=== PATIENT | female | born 1995 | race Hispanic/Latino ===

== ENCOUNTER → 2021-01-27 12:43 | Outpatient (CLI) | payer OTHER, SELFPAY ==
--- NOTE | 2021-01-27 12:47 | DI.US.S_ITS ---
PROCEDURE: US OB LIMITED INDICATIONS: DATES OUTSIDE/PRIOR DATING DATA: Last menstrual period (LMP): Unknown. First dating scan (date and location): ; January 27, 2021 . Estimated date of delivery (JEFFERY) from first dating scan: July 23, 2021 . TECHNIQUE: Real-time scanning was performed of the fetus, with image documentation and biometric measurements. COMPARISON: None. FINDINGS: General: A single living intrauterine gestation is present. Presentation: Transverse right. Placenta: Placental position is anterior , without previa. heart rate: 157 beats per minute. Maternal cervical canal: Not well visualized. biometrics: Biparietal diameter: 2.7 cm Head circumference: 10.3 cm Abdominal circumference: 8.6 cm Femur length: 1.5 cm Estimated gestational age from initial scan: not applicable. Composite gestational age from present scan: 14 weeks, 5 days Measurement variability for biometric dating: +/- 7 days from 14 weeks to 15 weeks 6 days gestation, +/- 10 days from 16 weeks to 21 weeks 6 days gestation, +/- 2 weeks from 22 weeks to 27 weeks 6 days gestation, +/- 3 weeks for 28 weeks gestation or later. weight reference: 4500 g or EFW >90/95% is considered macrosomia or large for gestational age. EFW <10% is small for gestational age. EFW 5% or less is considered intra-uterine growth restriction. Other: Not applicable. IMPRESSION: Single live intrauterine gestation as detailed above. Dictated by: Piter Herrera M.D. on 01/27/2021 at 15:06 Approved by: Piter Herrera M.D. on 01/27/2021 at 15:09
[2021-01-27 14:32] LABS: Add Manual Diff / Slide Review NO; Basophils Absolute Auto 0 /uL (0-100); Basophils Percent Auto 0.3 % (0-2); Eosinophils Absolute Auto 100 /uL (0-450); Eosinophils Percent Auto 1.5 % (2-4); Hematocrit 34.6 % (36-46); Hemoglobin 11.6 g/dL (12.0-16.0); Lymphocytes Absolute Auto 1200 /uL (1100-4500); Lymphocytes Percent Auto 21.8 % (25-40); Mean Corpuscular HGB Conc 33.6 % (30-36); Mean Corpuscular Hemoglobin 28.7 PG (26-34); Mean Corpuscular Volume 85.3 fL (80-100); Monocytes Absolute Auto 300 /uL (0-900); Monocytes Percent Auto 5.8 % (3-14); Neutrophils Absolute Auto 3900 /uL (1500-7000); Neutrophils Percent Auto 70.6 % (50-75); Platelet Count 245 X10^3/uL (150-400); Red Blood Cell Count 4.06 X10^6/uL (4.0-5.2); Red Cell Distribution Width 14.2 % (11.6-14.8); White Blood Cell Count 5.5 X10^3/uL (4.5-11.0)
[2021-01-27 14:33] LABS: Appearance Urine UA CLOUDY; Bilirubin Urine UA NEGATIVE (NEGATIVE); Color Urine UA YELLOW; Glucose Urine UA NEGATIVE (Negative); Ketones Urine UA NEGATIVE (NEGATIVE); Leukocyte Esterase Urine UA 2+ (NEGATIVE); Nitrite Urine UA NEGATIVE (Negative); Occult Blood Urine UA NEGATIVE (Negative); Protein Urine UA NEGATIVE (Negative); Urobilinogen Urine UA 0.2 E.U./dL (0.2)
[2021-01-27 15:08] LABS: Bacteria Urine Many (>30); RBC Urine None Seen (0-5/HPF); Squamous Epithelial Cell Urine 10-30 /HPF (0-5/HPF); WBC Urine 5-10/HPF (0-5/HPF)
[2021-01-28 06:08] LABS: RPR Screen Non Reactive (Non Reactive)
[2021-01-28 12:24] LABS: Varicella IgG Antibody 518 index (Immune >165)
[2021-01-28 17:11] LABS: Hepatitis B Surface Antigen NEGATIVE s/c (NEGATIVE); Rubella Antibody IgG 42.8 IU/mL (>15)
[2021-01-28 17:23] LABS: HIV 1 & 2 Ab/Ag 4th Gen Combo NEGATIVE (NEGATIVE); Hep C Virus Ab w/Reflex Quant NEGATIVE s/c (NEGATIVE)
== END ==
PROVIDERS: Referring Provider Obstetrics & Gynecology; Visit Provider Obstetrics & Gynecology
DX: Z36.87 Encounter for antenatal screening for uncertain dates (principal); Z3A.14 14 weeks gestation of pregnancy
CPT/HCPCS: 36415; 76815; 80055; 81003; 81015; 86787; 86803; 86850; 86900; 86901; 87086; 87389

== ENCOUNTER → 2021-02-16 12:11 | Outpatient (CLI) | payer OTHER, SELFPAY ==
[2021-02-18 20:13] LABS: Calc Gestational Age EDD (.); Estriol, Free 0.97 ng/mL (.); Inhibin A, Dimeric 163.56 pg/mL (.); Inhibin A, MoM 0.95 (.); Maternal Ethnicity Other (.); Maternal Weight 130 lbs (.); Number of Fetuses No (.); OSBR Risk 1 IN 10000 (.); Results Report (.); Test Results *Screen Negative* (.); hCG, Serum 26965 mIU/mL (.)
== END ==
PROVIDERS: Referring Provider Obstetrics & Gynecology; Visit Provider Obstetrics & Gynecology
DX: Z34.82 Encounter for supervision of other normal pregnancy, second trimester (principal); Z3A.17 17 weeks gestation of pregnancy
CPT/HCPCS: 36415; 82105; 82677; 84702; 86336

== ENCOUNTER → 2021-03-16 11:54 | Outpatient (CLI) | payer OTHER, SELFPAY ==
[2021-03-16 16:05] LABS: Urine N gonorrhoeae NOT DETECTED
[2021-03-16 16:21] LABS: Urine Chlamydia NOT DETECTED
== END ==
PROVIDERS: Visit Provider Obstetrics & Gynecology
DX: Z34.82 Encounter for supervision of other normal pregnancy, second trimester (principal); Z3A.21 21 weeks gestation of pregnancy
CPT/HCPCS: 87491; 87591

== ENCOUNTER → 2021-04-22 10:27 | Outpatient (CLI) | payer OTHER, SELFPAY ==
--- NOTE | 2021-04-22 10:29 | DI.US.S_ITS ---
PROCEDURE: US OB >= 14 WEEKS FETUS INDICATIONS: ANATOMY OUTSIDE/PRIOR DATING DATA: Last menstrual period (LMP): Unknown. LMP-based estimated date of delivery (JEFFERY): Not applicable. First dating scan (date and location): 01/27/2021. Estimated date of delivery (JEFFERY) from first dating scan: 07/23/2021. The calculations are made using the ultrasound JEFFERY of 07/23/2021. TECHNIQUE: Real-time scanning was performed of the fetus, with image documentation and biometric measurements. COMPARISON: None. FINDINGS: General: A single living intrauterine gestation is present. Presentation: Vertex. Placenta: Placental position is anterior , without previa. Amniotic fluid index: 14.4 cm, normal range is 5-24 cm. heart rate: 132 beats per minute. Maternal cervical canal: 4.0 cm long. Normal lower limit is 2.5 cm. biometrics: Biparietal diameter: 7.3 cm. 29 weeks 1 day. Head circumference: 26.3 cm. 28 weeks 5 days. Abdominal circumference: 23.5 cm. 27 weeks 6 days. Femur length: 5.2 cm. 27 weeks 5 days. Composite gestational age from initial ultrasound: 26 weeks 6 days Composite gestational age from present scan: 28 weeks 3 days Estimated weight and percentile: 1157 g. 83rd percentile. Anatomic survey: Neuro: Not seen Nuchal skin fold: Not seen Face: Nose and lips, facial profile are normal. Spine: Not seen Heart: 4-chambered heart is present, with normal ventricular outflow tracts. Diaphragm: Diaphragm is intact. Stomach: Left-sided stomach is present. Kidneys: No hydronephrosis. Normal is less than 5 mm in 2nd trimester, less than 7 mm in 3rd trimester. Cord: 3-vessel cord has orthotopic insertion. Bladder: Normal in size. Extremities: All 4 extremities identified. IMPRESSION: 1. Single live intrauterine with an estimated gestational age of 26 weeks 6 days by initial ultrasound. 2. Estimated weight 1157 g. 83rd percentile. 3. Anatomy is not completely visualized, however visualized anatomy is normal. We strive to produce accurate, complete, and clear reports of imaging services. To assist us in improving patient care, this report was composed using standard report templates and voice recognition software. Therefore, it may contain abnormal punctuation, insertions and/or omissions. Occasional wrong-word or sound-alike substitutions may occur. Though we review the report and make efforts to correct it, we do recommend that the report be read carefully in proper context to recognize any text inaccuracies. Dictated by: Vicente Whitten M.D. on 04/22/2021 at 11:24 Approved by: Vicente Whitten M.D. on 04/22/2021 at 11:30
== END ==
PROVIDERS: Referring Provider Obstetrics & Gynecology; Visit Provider Obstetrics & Gynecology
DX: Z34.92 Encounter for supervision of normal pregnancy, unspecified, second trimester (principal); Z3A.26 26 weeks gestation of pregnancy
CPT/HCPCS: 76811

== ENCOUNTER → 2021-05-25 09:52 | Outpatient (CLI) | payer OTHER, SELFPAY ==
[2021-05-25 11:41] LABS: Hemoglobin 10.4 g/dL (12.0-16.0)
[2021-05-25 12:09] LABS: GTT (PREG) 1 Hour PP 50gm Dose 87 mg/dL (76-139)
== END ==
PROVIDERS: Referring Provider Obstetrics & Gynecology; Visit Provider Obstetrics & Gynecology
DX: Z34.82 Encounter for supervision of other normal pregnancy, second trimester (principal); Z3A.25 25 weeks gestation of pregnancy
CPT/HCPCS: 36415; 82950; 85014; 85018

== ENCOUNTER 2021-06-18 10:14 | Outpatient (CLI) | payer OTHER, SELFPAY ==
--- NOTE | 2021-06-18 11:36 | PM.OBTRLD ---
Visit Information Visit Information Date of evaluation: 06/18/21 Primary OB Provider: Courtney Horton On-call OB Provider: Ronda Bailey Reason for Evaluation: Yes non-stress test Comments/Additional reasons for admission: Patient a 25yo @35 weeks gestation with two prior vaginal deliveries, presenting with scant vaginal bleeding overnight x1 after intercourse the night before. No further bleeding since once episode on wiping at 5 AM, no contractions or LOF, good movement. Otherwise uncomplicated . No UTI symptoms. Vital Signs Vital Signs: 102/55, HR 73 PFSH Medical History Anemia during (~2014) Hidradenitis suppurativa anxiety (~2019) Scoliosis Family History Mother Hypertension Father No problems noted. Grandmother Diabetes mellitus Grandfather No problems noted. Grandmother Diabetes mellitus Grandfather No problems noted. Social History marital status: number of children: 2 household members: spouse and children lives independently: Yes caregiver/support person: No pets and animals: Yes (2 dogs, 1 hamster.) education level: high school occupational status: employed ([employer]) current occupational exposures/hazards: No seatbelt use: always do you feel safe at home: Yes Smoking Status: Never smoker second hand exposure: No alcohol intake: former (Pre-: rare, social, few times a year.) substance use type: does not use during the past year weight has: remained stable well-balanced diet: daily or most days daily servings fruits/ve-4 caffeine: Yes ( a couple times/month) Type(s) of exercise: walking and normal ROM and activity (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 OB Disposition: home
[2021-06-18 11:57] LABS: Appearance Urine UA SL CLOUDY; Bilirubin Urine UA NEGATIVE (NEGATIVE); Color Urine UA YELLOW; Glucose Urine UA TRACE g/dL (Negative); Ketones Urine UA NEGATIVE (NEGATIVE); Leukocyte Esterase Urine UA 2+ (NEGATIVE); Nitrite Urine UA NEGATIVE (Negative); Occult Blood Urine UA NEGATIVE (Negative); Protein Urine UA TRACE (Negative); Specific Gravity Urine UA 1.015 (1.000-1.035); Urobilinogen Urine UA 0.2 E.U./dL (0.2)
[2021-06-18 12:10] LABS: Bacteria Urine Many (>30); RBC Urine 0-1/HPF (0-5/HPF); Squamous Epithelial Cell Urine 10-30 /HPF (0-5/HPF); WBC Urine 10-30/HPF (0-5/HPF)
[2021-06-18 12:11] LABS: Culture Indicated Urine Cult Not Indicated
== END 2021-06-18 11:47 | disposition home or self-care (01) ==
LOC: OB 07-20 13:01
PROVIDERS: PCP Internal Medicine; Referring Provider Obstetrics & Gynecology; Visit Provider Obstetrics & Gynecology
DX: O46.93 Antepartum hemorrhage, unspecified, third trimester (principal); O26.853 Spotting complicating pregnancy, third trimester; Z3A.35 35 weeks gestation of pregnancy
CPT/HCPCS: 59025; 81001; G0378; G0379

== ENCOUNTER 2021-06-22 11:14 | Outpatient (CLI) | payer OTHER, SELFPAY ==
--- NOTE | 2021-06-22 13:16 | P.TNLD_ITS ---
Visit Information Visit Information Date of evaluation: 06/22/21 Primary OB Provider: Courtney Horton On-call OB Provider: Courtney Horton Reason for Evaluation: Yes non-stress test non-stress test reason: other (Low heart rate in the office) [facility] Medical History Anemia during (~2014) Hidradenitis suppurativa anxiety (~2019) Scoliosis Family History Mother Hypertension Father No problems noted. Grandmother Diabetes mellitus Grandfather No problems noted. Grandmother Diabetes mellitus Grandfather No problems noted. Social History marital status: number of children: 2 household members: spouse and children lives independently: Yes caregiver/support person: No pets and animals: Yes (2 dogs, 1 hamster.) education level: high school occupational status: employed ([employer]) current occupational exposures/hazards: No seatbelt use: always do you feel safe at home: Yes Smoking Status: Never smoker second hand exposure: No alcohol intake: former (Pre-: rare, social, few times a year.) substance use type: does not use during the past year weight has: remained stable well-balanced diet: daily or most days daily servings fruits/ve-4 caffeine: Yes ( a couple times/month) Type(s) of exercise: walking and normal ROM and activity (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
== END 2021-06-22 12:17 | disposition home or self-care (01) ==
LOC: LABOR 11:49 → OB 06-23 07:29
PROVIDERS: PCP Internal Medicine; Referring Provider Obstetrics & Gynecology; Visit Provider Obstetrics & Gynecology
DX: O36.8330 Maternal care for abnormalities of the fetal heart rate or rhythm, third trimester, not applicable or unspecified (principal); Z3A.35 35 weeks gestation of pregnancy
CPT/HCPCS: 59025; G0378; G0379

== ENCOUNTER 2021-07-02 16:36 | Outpatient (CLI) | payer OTHER, SELFPAY ==
--- NOTE | 2021-07-02 17:58 | P.TNLD_ITS ---
Visit Information Visit Information Date of evaluation: 07/02/21 Primary OB Provider: Courtney Horton Reason for Evaluation: Yes non-stress test non-stress test reason: other (postdates) [facility] Medical History Anemia during (~2014) Hidradenitis suppurativa anxiety (~2019) Scoliosis Family History Mother Hypertension Father No problems noted. Grandmother Diabetes mellitus Grandfather No problems noted. Grandmother Diabetes mellitus Grandfather No problems noted. Social History marital status: number of children: 2 household members: spouse and children lives independently: Yes caregiver/support person: No pets and animals: Yes (2 dogs, 1 hamster.) education level: high school occupational status: employed ([employer]) current occupational exposures/hazards: No seatbelt use: always do you feel safe at home: Yes Smoking Status: Never smoker second hand exposure: No alcohol intake: former (Pre-: rare, social, few times a year.) substance use type: does not use during the past year weight has: remained stable well-balanced diet: daily or most days daily servings fruits/ve-4 caffeine: Yes ( a couple times/month) Type(s) of exercise: walking and normal ROM and activity (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 Signs of labor reviewed.)
== END 2021-07-02 17:47 | disposition home or self-care (01) ==
LOC: OB 07-03 09:34
PROVIDERS: PCP Internal Medicine; Referring Provider Obstetrics & Gynecology; Visit Provider Obstetrics & Gynecology
DX: Z03.71 Encounter for suspected problem with amniotic cavity and membrane ruled out (principal); O47.1 False labor at or after 37 completed weeks of gestation; Z3A.37 37 weeks gestation of pregnancy; Z34.83 Encounter for supervision of other normal pregnancy, third trimester
CPT/HCPCS: 59025; 84112; 87081; 87653; G0378; G0379

== ENCOUNTER → 2021-07-02 16:49 | Outpatient (CLI) | payer OTHER, SELFPAY | PROVIDERS: PCP Internal Medicine; Visit Provider Obstetrics & Gynecology | DX: Z34.83 Encounter for supervision of other normal pregnancy, third trimester (principal); Z3A.37 37 weeks gestation of pregnancy | CPT/HCPCS: 87081; 87653 ==

== ENCOUNTER 2021-07-06 00:58 | Inpatient (IN) | payer OTHER, SELFPAY ==
[2021-07-06] VITALS (39 sets, daily range): BP systolic 94–140; BP diastolic 52–84; PULSE 53–107; RESP 10–30; TEMP 36.4–36.6; O2SAT 91–100
--- NOTE | 2021-07-06 | PATH_ITS ---
[facility] Accession Number: [id number] . 01 Material submitted: . fallopian tube - SEGMENT BILATERAL FALLOPIAN TUBES . 02 Diagnosis: Segment Bilateral Fallopian Tubes: Fallopian tubes x2, complete cross sections of both tubes present; negative for epithelial atypia or malignancy. MRV 07/10/2021 1018 Local . 02 Electronically signed: . Dina Munoz MD, Pathologist NPI- [id number] . 01 Gross description: . Received in formalin and labeled with the patient's name and designated 1. Segment bilateral fallopian tubes are two undesignated fimbriated fallopian tubes. The first fallopian tube is 6.5 cm long x 0.7 cm in diameter with a purple congested outer surface and attached opened fimbria. The second fallopian tube is 8.0 cm long x 0.7 cm in diameter with a purple congested outer surface and attached open fimbria. No additional lesions are identified. [employer] sections are submitted as follows: . A1: [employer] first fallopian tube with entire bisected fimbria. A2: [employer] second fallopian tube with entire bisected fimbria. (AIDAN:[id number]) /[facility] 07/09/2021 1736 Local . 02 Pathologist provided ICD-10: Z30.2 . 02 CPT . 394177 Specimen Comment: A courtesy copy of this report has been sent to [phone] Performed at: 01 [facility] [address] [place] [address], [place], [place] [id number] MD Anthony Tenorio MD Phone: [phone] Performed at: [address] [facility] [address] [place], [place] [id number] MD Pavithra Garcia MD Phone: [phone]
[2021-07-06 01:50] LABS: Add Manual Diff / Slide Review NO; Basophils Absolute Auto 0 /uL (0-100); Basophils Percent Auto 0.5 % (0-2); Eosinophils Absolute Auto 100 /uL (0-450); Eosinophils Percent Auto 1.6 % (2-4); Hematocrit 29.5 % (36-46); Lymphocytes Absolute Auto 1600 /uL (1100-4500); Lymphocytes Percent Auto 20.4 % (25-40); Mean Corpuscular HGB Conc 33.9 % (30-36); Mean Corpuscular Hemoglobin 28.4 PG (26-34); Mean Corpuscular Volume 83.5 fL (80-100); Monocytes Absolute Auto 700 /uL (0-900); Monocytes Percent Auto 8.4 % (3-14); Neutrophils Absolute Auto 5300 /uL (1500-7000); Neutrophils Percent Auto 69.1 % (50-75); Platelet Count 173 X10^3/uL (150-400); Red Blood Cell Count 3.53 X10^6/uL (4.0-5.2); Red Cell Distribution Width 13.7 % (11.6-14.8); White Blood Cell Count 7.7 X10^3/uL (4.5-11.0)
[2021-07-06 01:59] LABS: COVID19 -Nasal RAPID Negative (Negative)
--- NOTE | 2021-07-06 02:09 | PM.AN.REGBLK ---
Regional Block Pre-procedure Procedure: Continuous Lumbar Epidural for L&D Attending OB provider: Chon Mckinney PM/ROS narrative: term labor, no complications ASA Class: II Labs: Hct 29.5 % (36-46) L 07/06/21 01:30 Plt Count 173 X10^3/uL (150-400) 07/06/21 01:30 Medications: Current Medications Generic Name Dose Route Start Last Admin Trade Name Freq PRN Reason Stop Dose Admin Carboprost Tromethamine 250 mcg 07/06/21 01:29 Carboprost 250 Mcg/Ml Ampul IM Q90M PRN Bleeding Lactated Ringer's 1,000 mls @ 100 mls/hr 07/06/21 01:30 Lactated Ringers IV CONT INGRID Oxytocin/Lactated Ringer's 30 unit in 500 mls @ 200 mls/hr 07/06/21 01:29 Oxytocin Premix IV CONT PRN Bleeding Protocol Tranexamic Acid 1,000 mg/ 100 mls @ 200 mls/hr 07/06/21 01:29 Sodium Chloride IV NOW PRN Bleeding Methylergonovine Maleate 0.2 mg 07/06/21 01:29 Methylergonovine 0.2 Mg Tablet PO Q6HR PRN Heavy Bleeding Methylergonovine Maleate 0.2 mg 07/06/21 01:29 Methylergonovine 0.2 Mg/Ml Vial IM NOW PRN Bleeding Misoprostol 800 mcg 07/06/21 01:29 Misoprostol 200 Mcg Tablet SC NOW PRN Bleeding Misoprostol 1,000 mcg 07/06/21 01:29 Misoprostol 200 Mcg Tablet SC NOW PRN Bleeding Misoprostol 400 mcg 07/06/21 01:29 Misoprostol 200 Mcg Tablet SL NOW PRN Bleeding Oxytocin 10 unit 07/06/21 01:29 Oxytocin 10 Unit/Ml Vial IM NOW PRN Bleeding Allergies: Allergies Allergy/AdvReac Type Severity Reaction Status Date / Time No Known Drug Allergies Allergy Verified 07/02/21 16:20 Procedure Insertion date: 07/06/21 Insertion time: 02:20 Prep/Local: betadine x3 and 1% lidocaine Interspace: L3-4 Patient position: sitting Needle: 18 gauge Hustead (CSE: 27g Pencan through Hustead, clear CSF, 1mL 0.25% bupiv MPF) Loss of resistance with: saline GUERDA at (cm): 4 Catheter placed at SKIN (cm): 9 Catheter in SPACE (cm): 5 Insertion: No CSF, No Blood, No Paresthesia with insertion, No Paresthesia with injection and No Test dose reaction Initial Medications TEST DOSE time: 02:25 TEST DOSE: 1.5% lidocaine with epinephrine 1:200k (mL): 3 BOLUS DOSE time: 02:58 BOLUS DOSE (mL): 5 BOLUS DOSE med: other (infusate) Infusion INFUSION: 0.125% bupivacaine and with fentanyl 2 mcg/mL Initial rate (mL/hr): 8 Post-procedure Anesthesia time START: 02:17 Anesthesia time END: 06:32 Post-procedure Anesthesia Assessment: Yes CV function: HR/BP stable, Yes Resp function: RR/sat/airway adequate, Yes Mental status appropriate and No Anesthesia complications
--- NOTE | 2021-07-06 06:54 | PM.OBHP.IH.1 ---
OB HPI Date/Time Date of admission: 07/06/21 Date Patient Seen: 07/06/21 Time Patient Seen: 06:00 History of Present Condition Chief complaint: having contractions JEFFERY Calculator Estimated Delivery Date Method Current WG Current Estimate 07/23/21 Ultrasound #1 37w 4d Other Estimates 08/02/21 LMP (Uncertain) 36w 1d Estimated Gestational Age (weeks): 37+4 : 5 Para: 2 care: good care, initiated at week # (9), number of visits (8) and pounds weight gain (36) Dating criteria OB: LMP confirmed by 1st trimester US Ultrasounds: normal 1st trimester US and normal mid trimester US Obstetrical complications: none Medical complications OB: none Preadmission Labs Last OB Lab Results: Blood Type O Positive 07/06/21 01:30 07/06/21 Antibody Screen Negative 07/06/21 01:30 07/06/21 Hematocrit 29.5 % (36-46) L 07/06/21 01:30 07/06/21 Hemoglobin 10.0 g/dL (12.0-16.0) L 07/06/21 01:30 07/06/21 Hepatitis B Surface Antigen Negative s/c (NEGATIVE) 01/27/21 13:17 01/27/21 Hepatitis C Antibody Negative s/c (NEGATIVE) 01/27/21 13:17 01/27/21 Rubella Antibody 42.8 IU/mL (>15) 01/27/21 13:17 01/27/21 Varicella-Zoster IgG Antibody 518 index (Immune >165) 01/27/21 13:17 01/27/21 Glucose 1 Hour 87 mg/dL (76-139) 05/25/21 11:05 05/25/21 -: Chlamydia screen: negative, Gonorrhea screen: negative and Urine: negative Genetic Screens: Quad screen: Normal External Labs -: Urine: negative Prior (ies) Past Pregnancies Del. Date GA/Weeks Labor Lgth Wt Sex Route Outcome Anesthesia Place Delv Breastfeed Preg Comp Name 08/06/14 38 18 7 lb 13 oz Male vaginal live - full term epidural [place], [place] 36 mos. none [place] 08/02/16 10 spontaneous 10/02/18 6 elective elective 04/30/19 38 3 7 lb 5 oz Male vaginal live - full term none [place], [place] 12 mos. none [place] Delivery Date: 08/02/16 Last Updated by: Kala Costello R.N. Had heavy bleeding x 2 mos, had D&C after that. Delivery Date: 10/02/18 Last Updated by: Kala Costello R.N. medication: no issues. Evaluation Evaluation Baseline heart rate: 135 Variability: Moderate (11-25) monitor accelerations: Absent Monitor Decelerations: Absent Contraction Frequency (minutes): 2 Uterine Contraction Intensity: Strong/Firm Category of Tracing: Reactive Dilation (cm): 10 Effacement (%): 100 station: +1 [facility] Medical History Anemia during (~2014) Hidradenitis suppurativa anxiety (~2019) Scoliosis Family History Mother Hypertension Father No problems noted. Grandmother Diabetes mellitus Grandfather No problems noted. Grandmother Diabetes mellitus Grandfather No problems noted. Social History marital status: number of children: 2 household members: spouse and children lives independently: Yes caregiver/support person: No pets and animals: Yes (2 dogs, 1 hamster.) education level: high school occupational status: employed ([employer]) current occupational exposures/hazards: No seatbelt use: always do you feel safe at home: Yes Smoking Status: Never smoker second hand exposure: No alcohol intake: former (Pre-: rare, social, few times a year.) substance use type: does not use during the past year weight has: remained stable well-balanced diet: daily or most days daily servings fruits/ve-4 caffeine: Yes ( a couple times/month) Type(s) of exercise: walking and normal ROM and activity (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 +) frequency: 3-4 times per week Meds Home Medications and Allergies Home Medications Medication Instructions Recorded Confirmed Type prenat.vits,charla,cmn-lvrv-tvldz 1 tab PO DAILY #90 tab 01/19/21 07/06/21 Rx cholecalciferol (vitamin D3) 25 25 mcg PO DAILY 02/13/21 07/06/21 History mcg (1,000 unit) capsule Double electric breast pump #1 ea 07/02/21 Rx Allergies Allergy/AdvReac Type Severity Reaction Status Date / Time No Known Drug Allergies Allergy Verified 07/06/21 06:05 OB Exam Narrative Exam Narrative: Generally: Comfortable with epidural Lungs: Clear to auscultation bilaterally Cardiovascular: Regular rate and rhythm Fundal height: 38 cm Estimated weight: 7 lb Extremities: No edema, +DTRs Objective Labs Result Diagrams: 07/06/21 01:30 Labs: Laboratory Results - last 24 hr 07/06/21 07/06/21 07/06/21 01:30 01:30 01:30 WBC 7.7 RBC 3.53 L Hgb 10.0 L Hct 29.5 L MCV 83.5 MCH 28.4 MCHC 33.9 RDW 13.7 Plt Count 173 Neut % (Auto) 69.1 Lymph % (Auto) 20.4 L [place] % (Auto) 8.4 Eos % (Auto) 1.6 L Baso % (Auto) 0.5 Neut # (Auto) 5300 Lymph # (Auto) 1600 [place] # (Auto) 700 Eos # (Auto) 100 Baso # (Auto) 0 SARS-CoV-2 (PCR) Negative Blood Type O Positive Antibody Screen Negative Assessment and Plan Assessment and Plan Assessment and Plan narrative: Assessment: 25-year-old 5 para 2 at 37-,4/7 weeks gestation in active labor in second stage Plan: Expected management to spontaneous vaginal delivery Time Spent with Patient Total time spent with greater than 50% in coordination of care (as documented) at patient's floor/unit and/or counseling patient:: Greater than 35 minutes
--- NOTE | 2021-07-06 07:12 | P.PCNOB_ITS ---
Labor & Delivery Delivery date: 07/06/21 Cervical ripening method: none Induction method: none Delivery augmentation: rupture of membranes Delivery monitor: external FHT and external uterine Route of delivery: Episiotomy description: None L&D Laceration Description: Superficial (vaginal) Delivery repair: chromic Estimated blood loss (mL): 100 Anesthesia Type: Epidural Complications: None Narrative: Patient complete and pushed for 20 minutes. At 6:32 a.m., a live male delivered in the SHELBI presentation over an intact perineum. No nuchal cord. The remainder of the body delivered without difficulty and was placed on mom's abdomen. The cord was double clamped and cut after it stopped pulsing. Cord bloods were obtained. Pitocin was given in the IV fluids. The placenta delivered intact with a three-vessel cord at 6:39 a.m.. The fundus was massaged to firm. There was a superficial vaginal laceration which was repaired with 4-0 chromic. Hemostasis was achieved. Apgars 9 at 1 minute and 9 at 5 minutes. Estimated blood loss 100 cc. . Epidural analgesia. Mom and stable to recovery. weight 7 lb 11.1 oz. [place] Baby 1: gender: Male Presentation: vertex Position: Right Occiput Anterior Placenta delivery description: Spontaneous Cord Vessel Description: 3 Vessels score (1 min): 9 score (5 min): 9 weight: 7 lb 11.1 oz Plan for aftercare: Routine care
--- NOTE | 2021-07-06 11:39 | PM.PREOP ---
Pre-operative Note COVID-19 COVID-19 status: Negative Result date/Date tested (Pos, Neg/Pending): 07/06/21 Criteria for continued procedure: Non-surgical alternatives not available or appropriate per current SOC Interval Note History & Physical reviewed/Exam performed by Physician: Yes Changes to H&P: No H&P completed within 30 days and has changed as indicated here:: 07/06/21 Assessment: 25 year old who desires permanent sterilization Plan: bilateral salpingectomy The risks, benefits and alternatives to the procedure were explained to the patient. The risks including bleeding, infection, injury to the bowel, bladder or ureters. She understands these risks and agrees to proceed. A full PAR-Q was held and consent form was signed.
--- NOTE | 2021-07-06 11:41 | SUR.OPER ---
Supine on padded OR bed, head on pillow, arms secured on padded arm boards at <90 degrees abduction, legs uncrossed, safety belt at thigh, tape over blanket over lower legs.
[2021-07-06] MEDS: BUPIVACAINE 0.5% (PF) VIAL 30 ML INJ (13:09)
[2021-07-06] MEDS: DEXTROSE 25 % IN WATER 2.5 GM/10 ML SYRINGE IV ×2 (13:55→13:57)
--- NOTE | 2021-07-06 14:26 | DI.RAD.S_ITS ---
PROCEDURE: XR CHEST 1V INDICATIONS: ET tube placement TECHNIQUE: One view of the chest was acquired. COMPARISON: None. FINDINGS: Surgical changes and devices: Enteric tube projects below the left diaphragm and beyond the field of view. Lungs and pleura: Lungs are clear. No pleural effusions or pneumothorax. Mediastinum: Mediastinal contours appear normal. Heart size is normal. Bones and chest wall: No suspicious bony lesions. Overlying soft tissues appear unremarkable. IMPRESSION: Enteric tube as detailed above. Dictated by: Piter Herrera M.D. on 07/06/2021 at 14:54 Approved by: Piter Herrera M.D. on 07/06/2021 at 14:54
--- NOTE | 2021-07-06 14:30 | P.PCN_ITS ---
Procedures Date/Time Date of procedure: 07/06/21 Time of procedure: 14:30 Intubation Sedative: other (propofol) Mg given: 120 Paralytic: succinylcholine Mg given: 60 Laryngoscope: Peter ET tube size: 6.5 ET tube uncuffed: No Tube secured depth (cm): 21 Tube secured location: teeth Tube placement confirmation: visualized tube passing through cords, equal breath sounds bilaterally and no breath sounds over epigastrium Patient tolerated procedure: well and no complications Intubation complications: none Additional comments: s/p PPTL under GA. LEP in situ from overnight labor with uncomplicated delivery this am approx 0630. LEP bolused with 10mL, 5mL, 5mL 2% lidocaine with evidence of appropriate block to sharp sensation approx L2-T8 in OR. Test by surgeon revealed intact sharp sensation when pt reported that her tongue felt numb. Proceeded with RSI for GETA. Intubation easy grade 1, surgery uneventful. Pt extubated in OR after becoming responsive, taken to PACU alert and responsive but sleepy. In PACU, pt became suddently unresponsive and apneic with brief desaturation into the 60's. Pt awoke with rapid imporvement in SaO2 back to 100%. This sequence repeated itself several times with pt awake, alert, responsive, followed by sudden unresponsiveness and apnea. While awake, she was unable to lift her arms, and only able to barely squeeze her hands. High epidural was suspected and she was intubated in the PACU for transfer to the ICU. Report given to hospitalist and [employer]'s. Anticipate quick resolution of high lidocaine epidural. Discussed with .
--- NOTE | 2021-07-06 15:00 | PM.CN.EICU ---
History of Present Illness Consult details Chief complaint: having contractions :: This patient was seen via real time interactive two-way audiovisual telecommunication. HPI: This is a 25 yo 37 weeks + 4 days who today had uncomplicated spontaneous vaginal delivery followed by planned elective uncomplicated tubal ligation under general anesthesia. According to anesthesiologist's report, patient was extubated in OR and taken to PACU alert and responsive but sleepy but in PACU patient suddenly became unresponsive, apneic with brief pox drip to 60s. Pt. woke up wiht rapid improvement inpox to 100% but then she would get unresponsive and apneic again and therefore she was reintubated in PACU and transferred to ICU. Anesthesiologist suspects cause of these events to be high lidocaine epidural. On arrival to ICU patient is hemodyamically stable (HR 61 BP 103/55 RR 14 Pox 100%. Her initial vent settings is PRVC RR 16 Vt 450 PEEP 5 FIO2 100% and initial ABG on those settings is 7.53/28/159 and at the time her minute ventilation was about 7.9 L. RT reduced her RR to 14 and with that her minute ventilation is about 7.o. He also reduced her Fio2 to 30R% and her Pox is now 92-93%. Hospitalist endorsed to me that aneshtesiologist told him that before reintubation, patient had significant linits to using her hands from high epidural but after she was reintubated and brought to ICU she was trying to pull out ET tube so it's possible high epidural is wearing off. She was initially on propofol drip at 100 mcg/kg/min on arrival to ICU. [facility] Medical History Anemia during (~2014) Hidradenitis suppurativa anxiety (~2019) Scoliosis Family History Mother Hypertension Father No problems noted. Grandmother Diabetes mellitus Grandfather No problems noted. Grandmother Diabetes mellitus Grandfather No problems noted. Social History marital status: number of children: 2 household members: spouse and children lives independently: Yes caregiver/support person: No pets and animals: Yes (2 dogs, 1 hamster.) education level: high school occupational status: employed ([employer]) current occupational exposures/hazards: No seatbelt use: always do you feel safe at home: Yes Smoking Status: Never smoker second hand exposure: No alcohol intake: former (Pre-: rare, social, few times a year.) substance use type: does not use during the past year weight has: remained stable well-balanced diet: daily or most days daily servings fruits/ve-4 caffeine: Yes ( a couple times/month) Type(s) of exercise: walking and normal ROM and activity (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 +) frequency: 3-4 times per week Current Medications Current Medications Medications: Home Medications prenat.vits,charla,[id number] 1 tab PO DAILY #90 tab 01/19/21 [Rx Confirmed 07/06/21] cholecalciferol (vitamin D3) 25 mcg (1,000 unit) capsule 25 mcg PO DAILY 02/13/21 [History Confirmed 07/06/21] Double electric breast pump #1 ea 07/02/21 [Rx] Exam Vital Signs (past 8 hours): - 07/06/21 13:53 07/06/21 13:57 07/06/21 14:01 Temperature 97.8 F Pulse Rate 86 86 97 H Respiratory Rate 13 10 L 14 Blood Pressure 134/80 136/68 128/84 Pulse Oximetry 98 99 98 07/06/21 14:05 07/06/21 14:09 07/06/21 14:11 Temperature Pulse Rate 89 74 71 Respiratory Rate 12 17 15 Blood Pressure 129/76 120/66 116/69 Pulse Oximetry 91 98 97 07/06/21 14:13 07/06/21 14:17 Temperature Pulse Rate 69 67 Respiratory Rate 14 Blood Pressure 118/63 121/70 Pulse Oximetry 97 100 Oxygen Delivery Method Mechanical Ventilation Objective Labs Result Diagrams: 07/06/21 01:30 Labs: Laboratory Results - last 24 hr 07/06/21 07/06/21 07/06/21 01:30 01:30 01:30 WBC 7.7 RBC 3.53 L Hgb 10.0 L Hct 29.5 L MCV 83.5 MCH 28.4 MCHC 33.9 RDW 13.7 Plt Count 173 Neut % (Auto) 69.1 Lymph % (Auto) 20.4 L [place] % (Auto) 8.4 Eos % (Auto) 1.6 L Baso % (Auto) 0.5 Neut # (Auto) 5300 Lymph # (Auto) 1600 [place] # (Auto) 700 Eos # (Auto) 100 Baso # (Auto) 0 SARS-CoV-2 (PCR) Negative Blood Type O Positive Antibody Screen Negative Assessment & Plan Assessment & Plan narrative: Assessment Plan 1) Suspected high Spinal block 2) Acute respiratory failure requiring intubation- most likely caused by #1 3) s/p elective tube ligation s/p uncomplicated spontaneous vaginal delivery Assessment -given patient is 165 cm, Vt was reduced from 450 to 380 (and RR increased back to 16 to compensate for drop in Vt) -FIo2 increased from 30 to 40% and Pox went from 92% to 98% -check ABG and adjust vent as needed -start Dex drip and titrate down propofol drip as tolerated -when patinet is awake and calm enough to do SBT, will place patient on pressure support mode -check CBC and CMP -post- management per OB-Gun Prophylaxis: SCDs, famotidine, defer to OB-Retail Sales Advisor when ok to do DVT chemoprophylaxis CCT spent 60 min Time Spent With Patient Critical Care time: I spent a total of [] minutes of critical care time on this patient's care today; this time is exclusive of procedural time.
[2021-07-06] MEDS: propofoL 1,000 MG/100 ML VIAL 27.596 MG IV (15:15)
--- NOTE | 2021-07-06 15:40 | PM.HP.1 ---
History of Present Illness History of Present Illness Date Patient Seen: 07/06/21 Time Patient Seen: 15:00 Chief complaint: having contractions Narrative: Ms. Burrell is a 25W who presented to the hospital and had spontaneous vaginal delivery which was followed with elective tubal ligation. She did initially have epidural placed with lidocaine given. She was noted to have some perioral numbness. Surgeon then noted that patient had intact sensation. She was then placed under general anesthesia and extubated after uneventful tubal ligation. She had multiple episodes of lethargy, unresponsiveness, apnea, and hypoxemia to the 60s. Decision was made for reintubation. Anesthesiologist noted that patient had very significant weakness and limitations to moving her upper extremities before reintubation. It was suspected that may be secondary to high lidocaine epidural On arrial to the ICU patient was intubated, sedated on propofol drip. Initial vent settins were rr 16 vt 450, peep 5 on 100% FIO2. Her rr was decreased to 14 and fio2 to 30%. On arrival to the ICU she was not completely sedated and attempting to move her hands. Anesthesiologist noted that this was improved from prior to reintubation. Patient History Medical History Anemia during (~2014) Hidradenitis suppurativa anxiety (~2019) Scoliosis Family & Social History Family History Mother Hypertension Father No problems noted. Grandmother Diabetes mellitus Grandfather No problems noted. Grandmother Diabetes mellitus Grandfather No problems noted. Social History: household members spouse,children lives independently Yes caregiver/support person No Tobacco & Substance use: Smoking Status Never smoker alcohol intake former Meds Home Medications and Allergies Home Medications Medication Instructions Recorded Confirmed Type prenat.vits,charla,[id number] 1 tab PO DAILY #90 tab 01/19/21 07/06/21 Rx cholecalciferol (vitamin D3) 25 25 mcg PO DAILY 02/13/21 07/06/21 History mcg (1,000 unit) capsule Double electric breast pump #1 ea 07/02/21 Rx Allergies Allergy/AdvReac Type Severity Reaction Status Date / Time No Known Drug Allergies Allergy Verified 07/06/21 06:05 Review of Systems Review of Systems Narrative: 14 systems reviewed and negative aside from what is noted in HPI Exam Vital Signs (past 8 hours): - 07/06/21 13:34 07/06/21 13:39 07/06/21 13:44 Temperature Pulse Rate 80 107 H 100 H Respiratory Rate 10 L 12 12 Blood Pressure 118/78 140/84 137/75 Pulse Oximetry 97 98 100 07/06/21 13:49 07/06/21 13:53 07/06/21 13:57 Temperature 97.8 F Pulse Rate 92 H 86 86 Respiratory Rate 13 13 10 L Blood Pressure 129/77 134/80 136/68 Pulse Oximetry 100 98 99 07/06/21 14:01 07/06/21 14:05 07/06/21 14:09 Temperature Pulse Rate 97 H 89 74 Respiratory Rate 14 12 17 Blood Pressure 128/84 129/76 120/66 Pulse Oximetry 98 91 98 07/06/21 14:11 07/06/21 14:13 07/06/21 14:17 Temperature Pulse Rate 71 69 67 Respiratory Rate 15 14 Blood Pressure 116/69 118/63 121/70 Pulse Oximetry 97 97 100 07/06/21 14:45 07/06/21 15:00 Temperature Pulse Rate 73 66 Respiratory Rate 16 14 Blood Pressure 103/55 L Pulse Oximetry 100 95 Oxygen Delivery Method Mechanical Ventilation Narrative Exam Narrative: GEN: no acute distress, sedated/intubated HEENT: PERRL, moist mucous membranes NECK: trachea midline, no JVD CV: regular rate and rhythm, no murmurs PULM: clear bilaterally, no wheezes, rhonchi, rales ABD: soft, nontender, nondistended, no organomegaly, normal bowel sounds EXT: warm and well perfused with no edema NEURO: sedated, intubated Objective Labs Result Diagrams: 07/06/21 01:30 Labs: Laboratory Results - last 24 hr 07/06/21 07/06/21 07/06/21 01:30 01:30 01:30 WBC 7.7 RBC 3.53 L Hgb 10.0 L Hct 29.5 L MCV 83.5 MCH 28.4 MCHC 33.9 RDW 13.7 Plt Count 173 Neut % (Auto) 69.1 Lymph % (Auto) 20.4 L [place] % (Auto) 8.4 Eos % (Auto) 1.6 L Baso % (Auto) 0.5 Neut # (Auto) 5300 Lymph # (Auto) 1600 [place] # (Auto) 700 Eos # (Auto) 100 Baso # (Auto) 0 SARS-CoV-2 (PCR) Negative Blood Type O Positive Antibody Screen Negative Assessment & Plan Assessment & Plan narrative: Ms. Burrell is a 25W , s/p tubal ligation who developed respiratory distress and apnea in the post-operative setting concerning for possible high spinal lidocaine epidural 1. Acute hypoxemic respiratory failure -etiology most consistent with side effect from lidocaine epidural -patient already moving extremities, per anesthesiologist improved from PACU -admitted on propofol, wean as able and transition to precedex and plan for extubation when lidocaine wears off -chest xray showed no acute process -appreciate tele-ICU consult 2. s/p vaginal delivery and tubal ligation -further recs per obstetric team CODE: Full Proxy: Javier Burrell spouse I have utilized all available resources to reconcile the patient's home medications Time Spent With Patient Critical Care time: I spent a total of [] minutes of critical care time on this patient's care today; this time is exclusive of procedural time.
[2021-07-06 16:01] LABS: pH ABG 7.53 (7.35-7.45)
[2021-07-06 16:02] LABS: PCO2 ABG 28.5 mmHg (35-45)
[2021-07-06 16:03] LABS: Fractionated Inspired Oxygen 100; HCO3 ABG 24 mmol/L (22-26); Oxygen Saturation ABG 100 % (95-100); PO2 ABG 169 mmHg (80-100); TCO2 ABG 25 mmol/L (21-31)
[2021-07-06] MEDS: dexmedeTOMIDine in 0.9 % NaCL 400 MCG/100 ML PLAST..BAG 10.614 MCG IV (16:07)
--- NOTE | 2021-07-06 16:34 | PC.NURSE ---
1510: Pt admitted to ICU room 231 from PACU. 6.5 cm ETT intact, 22cm @ teeth. OG placed and confirmed via xray. Wood and bilat soft wrist restraints placed per verbal order from Dr Lopes. Pt awakening and reaching for ETT. Sedation orders and parameters received per teleintensivist. Will continue to monitor.
[2021-07-06] MEDS: DEXTROSE 10 % IN WATER 250 ML 999 ML IV (16:47)
[2021-07-06] MEDS: propofoL 1,000 MG/100 ML VIAL 25.474 MG IV (16:48)
[2021-07-06 17:03] LABS: Hemoglobin 9.2 g/dL (12.0-16.0); Mean Corpuscular HGB Conc 34.2 % (30-36); Mean Corpuscular Hemoglobin 28.4 PG (26-34); Mean Corpuscular Volume 82.9 fL (80-100); Platelet Count 159 X10^3/uL (150-400); Red Blood Cell Count 3.25 X10^6/uL (4.0-5.2); Red Cell Distribution Width 13.6 % (11.6-14.8); White Blood Cell Count 8.7 X10^3/uL (4.5-11.0)
[2021-07-06 17:12] LABS: Prothrombin Time 11.2 SECONDS (10.1-12.7)
--- NOTE | 2021-07-06 17:46 | SUR.PHASEI ---
Pt arrived to PACU at approximately 1330. Upon arrival pt appeared to be in stable condition. A&Ox4, O2 sat >96%, BP and HR stable (See vital signs flow sheet). Shortly after arriving pt became apneic. HR increasing, O2 sats dropped to the high 60's quickly. Setter Induction Heating Equipment noted this and intervened with jaw thrust, oral airway and high flow O2. MD Mata also called to bedside. Pt suddenly woke up and was alert and able to breath on her own. Oral airway removed and vital signs remained stable. MD Mata at bedside assessing pt when pt again went unresponsive/apniec requiring airway intervention. This repeated itself several times and it was decided to intubate this pt for the patient's safety and proper management of her airway. Please see MD's note concerning their rationale and reasoning for intubating this pt. Pt was intubated in PACU and immediately brought up to ICU for closer monitoring.
[2021-07-06 18:26] LABS: pH ABG 7.54 (7.35-7.45)
[2021-07-06 18:27] LABS: Fractionated Inspired Oxygen 40; HCO3 ABG 25 mmol/L (22-26); Oxygen Saturation ABG 100 % (95-100); PCO2 ABG 29.4 mmHg (35-45); PO2 ABG 210 mmHg (80-100); TCO2 ABG 26 mmol/L (21-31)
[2021-07-06 18:34] LABS: Alanine Aminotransferase 11 IU/L (<35); Albumin 2.7 g/dL (3.5-5.0); Alkaline Phosphatase 140 U/L (38-126); Aspartate Aminotransferase 33 IU/L (14-36); BUN Creatinine Ratio 12.2 (6-22); Bilirubin Total 0.4 mg/dL (0.2-1.3); Blood Urea Nitrogen 5 mg/dL (7-17); Calcium 7.9 mg/dL (8.4-10.2); Carbon Dioxide 20 mmol/L (22-32); Chloride 105 mmol/L (98-107); Estimated Glomerular Filt Rate > 60.0 mL/min (>60); Globulin 2.7 g/dL (1.7-4.1); Glucose 289 mg/dL (70-100); HEMOLYSIS < 15 (0-50); Magnesium 1.7 mg/dL (1.6-2.3); Potassium 3.1 mmol/L (3.4-5.1); Sodium 131 mmol/L (137-145); Total Protein 5.4 g/dL (6.3-8.2)
[2021-07-06 19:53] LABS: pH ABG 7.47 (7.35-7.45)
[2021-07-06 19:54] LABS: Fractionated Inspired Oxygen 21; HCO3 ABG 25 mmol/L (22-26); PCO2 ABG 34.6 mmHg (35-45); TCO2 ABG 26 mmol/L (21-31)
--- NOTE | 2021-07-06 20:15 | P.ICUMDRN_ITS ---
- :: This patient was seen via real time interactive two-way audiovisual telecommunication. Note: At start of evening, patient intubated on Propofol 60 and Precedex 1.4. Had previously passed a weaning trial in the evening on PS 5/5 while on Prec 0.4 and ABG reviewed, but due to some agitation, her sedatives had been increased and placed back on VC. On my evaluation of patient despite Propofol, Precedex she was awake and interactive, following commands. Noted to by RT/RN to have good strength, as it seems previous epidural/lidocaine has worn off. Discussed case with supervisor train operations Anesthesiologist (Dr. Meza) ER physician, store warehouse associate, in-house TRAVEL OCCUPATIONAL THERAPIST, bedside RN and RT. [place] patient appropriate for extubation given that her high-epidural has worn off. Planned for re-intubation if needed, with Dr. Meza available to come in and ER available in emergency. Patients propfol/precedex held, patient able to tolerate this and be fully awake. Extubated successfully to NC. Hemodynamically stable, no increased WOB and satting in high 90s-100% on NC. PRN Morphine ordered, pending patient passing a bedside swallow. Instructed patient that if she feels that it's hard to breathe, to please notify RN. Will continue to monitor in ICU overnight. If any concerns about respiratory depression, plan for stat ABG, BiPAP and notification of Anesthesia/ER.
[2021-07-07] MEDS: MAGNESIUM SULFATE 2 GM/50 ML PIGGYBACK IV (00:48)
[2021-07-07] MEDS: POTASSIUM CHLORIDE 20 MEQ TAB 40 MEQ PO (00:49)
[2021-07-07] MEDS: IBUPROFEN 600 MG TABLET PO ×2 (01:08→09:30)
--- NOTE | 2021-07-07 01:40 | PC.NURSE ---
Patient with Propofol and Precedex off and patient in distress with ETT. Patient attempting to cough and spit ETT out. Novelty Twister Tender with orders to restart Precedex at 0.4mcg/kg/min and titrate Propofol up to 30 mcg/kg/min. Patient continuing to be in acute distress and continuing to gag. Suctioned orally and per ETT for clear secretions. Propofol increased to 60 mcg/kg/min per Novelty Twister Tender. Novelty Twister Tender in discussion with consumer services advisor anethesiologist and ED MD regarding extubation with their back-up if patient extubated and in need of emergent re-intubation. Plan in place for emergent intubation, if needed. All sedation off @ 1999. Patient awake and responding to rehabilitation consultant. Only slight grogginess, but able to keep eyes open. Patient extubated per RT, Dr. Leo Romero, and the rehabilitation consultant per video, and this RN present. Patient tolerated extubation and oral suctioning well. O2 at 4L initiated. Patient with sats at 100%. Patient states she feels much better. No stridor appreciated and lungs clear. Patient awake, alert and oriented and continuing to maintain sats in the 97-100% range with gradual titration to room air over a four hour period. Dr. Bailey at bedside to instruct patient and father of baby how to use breast pump and instructions given to dump breast milk for at least 8 hours. Patients fundus massaged until firm @ U+2. Moderate amount of bleeding noted at 2100. On recheck fundus firm and minamal bleeding noted at 2330. Patient instructed on fundal massage and checks, with encouragement to do self checks. Patient agreeable. Father of baby and infant, now discharged now in room with patient.
[2021-07-07 02:00] VITALS: BP 103/55; PULSE 66; RESP 20; O2SAT 97
[2021-07-07 04:00] VITALS: BP 93/50; PULSE 61; RESP 20; TEMP 37; O2SAT 97
[2021-07-07 04:49] LABS: Add Manual Diff / Slide Review NO; Basophils Absolute Auto 0 /uL (0-100); Basophils Percent Auto 0.3 % (0-2); Eosinophils Absolute Auto 100 /uL (0-450); Hematocrit 26.3 % (36-46); Hemoglobin 8.9 g/dL (12.0-16.0); Lymphocytes Absolute Auto 1800 /uL (1100-4500); Lymphocytes Percent Auto 18.1 % (25-40); Mean Corpuscular HGB Conc 34.1 % (30-36); Mean Corpuscular Hemoglobin 28.7 PG (26-34); Mean Corpuscular Volume 84.2 fL (80-100); Monocytes Absolute Auto 800 /uL (0-900); Monocytes Percent Auto 7.5 % (3-14); Neutrophils Absolute Auto 7400 /uL (1500-7000); Neutrophils Percent Auto 73.1 % (50-75); Platelet Count 182 X10^3/uL (150-400); Red Blood Cell Count 3.12 X10^6/uL (4.0-5.2); Red Cell Distribution Width 13.5 % (11.6-14.8); White Blood Cell Count 10.2 X10^3/uL (4.5-11.0)
[2021-07-07 05:03] LABS: Alanine Aminotransferase 11 IU/L (<35); Albumin 2.7 g/dL (3.5-5.0); Alkaline Phosphatase 122 U/L (38-126); Aspartate Aminotransferase 38 IU/L (14-36); BUN Creatinine Ratio 13.8 (6-22); Bilirubin Total 0.5 mg/dL (0.2-1.3); Blood Urea Nitrogen 8 mg/dL (7-17); Calcium 7.7 mg/dL (8.4-10.2); Carbon Dioxide 25 mmol/L (22-32); Chloride 106 mmol/L (98-107); Estimated Glomerular Filt Rate > 60.0 mL/min (>60); Globulin 2.7 g/dL (1.7-4.1); Glucose 79 mg/dL (70-100); HEMOLYSIS < 15 (0-50); Sodium 134 mmol/L (137-145); Total Protein 5.4 g/dL (6.3-8.2)
[2021-07-07 08:00] VITALS: BP 91/54; PULSE 60; RESP 18; TEMP 36.6; O2SAT 100
[2021-07-07] MEDS: DOCUSATE 100 MG CAPSULE PO (09:29)
[2021-07-07] MEDS: PRENATAL VIT,CALC/IRON/FOLIC 1 TABLET 1 TAB PO (09:30)
[2021-07-07] MEDS: OXYCODONE IR 5 MG TABLET PO (09:30)
--- NOTE | 2021-07-07 09:55 | PC.NURSE ---
0955: Pt discharging home. PIV, de leon cath, epidural cath, and all monitoring equipment removed. Discharge information to be given per center staff prior to leaving hospital. Pt offers no questions or complaints at this time.
--- NOTE | 2021-07-08 07:22 | PM.EVENT ---
Event Note Date Patient Seen: 07/06/21 Time Patient Seen: 13:45 Event Note (Rapid Response, Code, or fall): Called to the recovery room due to apneic episodes after bilateral salpingectomy. Patient had an epidural in place for the procedure. This was not working for pain management and she was put to sleep for the procedure. In the recovery room patient had several apneic episodes. A decision was made to proceed with intubation. Patient sent to the ICU. It was proposed that the medication in the epidural a scented instead of descended.
--- NOTE | 2021-07-08 07:24 | PM.OBDS.1 ---
Discharge Providers Provider Date of admission: 07/06/21 00:58 Discharge Date: 07/07/21 Primary care physician: Jossie Lovett MD Consults: 07/06/21 01:31 Consult to Anesthesiology Urgent Comment: Adolfo Consulting Provider: Anesthesiologist Reason for consultation: Labor 07/06/21 14:52 Consult to Tele-mentally retarded teacher Routine Comment: Consulting Provider: Earl Tele-intensivists Reason for consultation: Advertising Representative services Has provider been notified: Yes 07/07/21 07:14 Consult to Childhood Development Teacher Routine Comment: Discharge provider: Courtney Horton MD Summary Hospital Course Date Patient Seen: 07/07/21 Time Patient Seen: 07:40 Diagnoses: 37-4/7 weeks gestation Spontaneous vaginal delivery Artificial rupture of membranes Epidural analgesia bilateral salpingectomy Hospital Course: Patient is a 25-year-old 5 para 3 who presented in active labor at 37-,4/7 weeks gestation. She received an epidural for pain management. She progressed to complete dilation. Artificial rupture membranes was performed and she had a spontaneous vaginal delivery without complication. Several hours after delivery patient underwent a bilateral salpingectomy for sterilization under general anesthesia. The epidural was not working for pain management. In the recovery room the patient had several apneic episodes. She was intubated and went to the intensive care unit for several hours. She was extubated that evening after the epidural wore off. On post day # 1 patient was doing well. going well. Bleeding tapering. She was feeling completely normal. She had a desire to go home. She was discharged home on day # 1. Peripartum Data Infant Delivery Method: Natural Vaginal Laceration Description: Superficial (Vaginal) Episiotomy description: None Procedures: Epidural analgesia Artificial rupture of membranes Spontaneous vaginal delivery bilateral salpingectomy complications: other (Several apneic episodes in the recovery room requiring intubation) [place] 1: Gender: Male Disposition of : home Status at Discharge Cognitive/behavioral status at discharge: oriented Functional status at discharge: independent ambulation Overall status at discharge: patient is progressing back to baseline Time Spent with Patient Time attestation: Total time spent providing and/or coordinating discharge services: Time spent: Less than 30 minutes Objective Labs Result Diagrams: 07/07/21 03:47 07/07/21 03:47 Exam Vital Signs (past 8 hours): Fraction of Inspired Oxygen 35 Oxygen Delivery Method Nasal Cannula Oxygen Flow Rate 0 Narrative Exam Narrative: Generally: Patient lying in bed, no acute distress Lungs: Clear to auscultation bilaterally Cardiovascular: Regular rate and rhythm Fundus: Firm at U -2 Incision: Clean dry and intact with Allevyn dressing Extremities: Trace edema, negative Homans Discharge Plan Discharge Plan Patient Disposition: Home Provider Discharge Comment: Call with fever, chills, or bleeding vaginally more than a pad in an hour Call with any redness or drainage around the incision Ibuprofen 600 mg every 6 hours as needed Tylenol 650 mg every 6 hours as needed Discharge orders & Medications Prescriptions: Continued prenat.vits,charla,[id number] Tablet 1 tab PO DAILY Qty: 90 3RF cholecalciferol (vitamin D3) 25 mcg (1,000 unit) capsule 25 mcg PO DAILY 0RF No Action (DME) Double electric breast pump See Rx Instructions .Route .MEDSUPPLY Qty: 1 0RF Rx Instructions: Use electric breast pump and supplies as directed for 99 months. JEFFERY 07/23/21 Follow up/Referrals: Courtney Horton MD [Physician] - 6 Weeks Diet/Activity/Treatments Diet: Regular Activity: Nothing in the vagina for 6 weeks Skin/Wound/Dressing Care Report to your healthcare provider any signs of infection, such as:: chills, fever, increased pain, unusual drainage and unusual redness Dressing: Remove dressing 07/09 Visit Report/Discharge Packet Instructions: DI for Tubal Ligation Stand Alone Forms: Discharge: Care, Surgery Discharge Discharge Data Primary Care Provider: Jossie Lovett
--- NOTE | 2021-07-17 15:50 | PM.GYNOP.1 ---
Operative Date/Time/Diagnoses Date of procedure: 07/06/21 Time of procedure: 13:30 Pre-op diagnosis: Multiparity Desires permanent sterilization Post-op diagnosis: same Procedure & Clinicians Procedure: Procedures Operation Date: 07/06/21 12:15 Actual Procedure Side Surgeon p Post Bilateral Tubal Ligation Courtney Horton MD Indications: Desires permanent sterilization Multiparity Surgeon: Courtney Horton Anesthesia Type: General and Local Operative Notes Findings: Uterus 2 cm below U Normal tubes and ovaries Closure Type: primary Specimen(s): left tube and right tube Estimated blood loss (mL): 5 Blood products transfused: none Procedure in detail: After informed consent was obtained, the patient was taken to the operating room where she was placed in the dorsal supine position. An attempt was made to use the epidural for analgesia. It was not working. The patient underwent general endotracheal anesthesia. Two Allis clamps were placed below the umbilical fold proximally 2.5 cm apart. A 2 cm incision was made and carried through to the underlying layer of fascia. The fascia was nicked in the midline and the incision extended bilaterally. The peritoneum was grasped between 2 hemostats and entered sharply with the Metzenbaum scissors. The left tube was located and carried out to the fimbriated end. Magdiel's were placed on the tube. Using the LigaSure Or, the mesosalpinx was cauterized and cut all the way down to the cornua of the uterus. The tube was amputated at the cornua. This was repeated on the patient's right tube. Hemostasis was achieved. The fascia was reapproximated using 0 Vicryl in a running fashion. The subcutaneous layer was irrigated with warm normal saline. Two simple interrupted sutures were placed with 3-0 Vicryl. The skin was closed with 4-0 Monocryl in a subcuticular fashion. Steri-Strips and Allevyn dressings were placed. Sponge, lap, and instrument counts were correct x2. The patient tolerated the procedure well, and was taken to PACU in stable condition. Complications: none Post-operative Condition: stable Disposition: PACU Plan for aftercare: To the center after recovery
== END 2021-07-07 10:40 | disposition home or self-care (01) | DRG 798 ==
LOC: LABOR 13:06 → ICU 14:41
PROVIDERS: Internal Medicine; Obstetrics & Gynecology; Admitting Provider Obstetrics & Gynecology; PCP Internal Medicine; Referring Provider Obstetrics & Gynecology; Visit Provider Obstetrics & Gynecology
PROC: 10E0XZZ Delivery of Products of Conception, External Approach (ICD-10-PCS; CPT 58605; principal; 2021-07-06 12:15)
DX: O70.0 First degree perineal laceration during delivery (principal); Z37.0 Single live birth; Z30.2 Encounter for sterilization; Z3A.37 37 weeks gestation of pregnancy; Z20.822 Contact with and (suspected) exposure to COVID-19
CPT/HCPCS: 01967; 36415; 36600; 58605; 59050; 59400; 71045; 80053; 82805; 82962; 83735; 85025; 85027; 85610; 86850; 86900; 86901; 87635; 87797; 94003; 94799; C9803; G0379; J1100; J1885; J2405; J2704; J3010; J3475

== ENCOUNTER → 2023-03-22 15:52 | Outpatient (CLI) | payer OTHER, SELFPAY ==
[2021-08-17 15:11] VITALS: PULSE 66; RESP 14; O2SAT 97
[2023-03-22 19:25] LABS: Hepatitis B Surface Antigen NEGATIVE s/c (NEGATIVE)
[2023-03-22 20:03] LABS: HIV 1 & 2 Ab/Ag 4th Gen Combo NEGATIVE (NEGATIVE); Hep C Virus Ab w/Reflex Quant NEGATIVE s/c (NEGATIVE)
[2023-03-24 03:36] LABS: RPR Screen Non Reactive (Non Reactive)
== END ==
PROVIDERS: Referring Provider Physician Assistant Medical; Visit Provider Physician Assistant Medical
DX: Z11.3 Encounter for screening for infections with a predominantly sexual mode of transmission (principal)
CPT/HCPCS: 36415; 86592; 86803; 87340; 87389; 87491; 87591

== ENCOUNTER 2023-05-29 13:29 | Emergency (ER) | payer OTHER, SELFPAY ==
[2021-08-17 15:11] VITALS: PULSE 66; RESP 14; O2SAT 97
[2023-05-29 13:35] VITALS: BP 145/102; PULSE 68; RESP 18; TEMP 37; O2SAT 98; BMI 21.7
[2023-05-29 15:11] VITALS: BP 115/79; PULSE 75; RESP 18; O2SAT 98
--- NOTE | 2023-05-29 15:47 | ED.SKABFB ---
HPI - Skin/Abscess/Foreign Bdy <Janet Gomez PA-C - Last Filed: 05/29/23 17:54> General Chief complaint: Skin/Abscess/Foreign Body Stated complaint: rash on both hands and lower arms Time Seen by Provider: 05/29/23 13:44 Source: patient Mode of arrival: Ambulatory Limitations: no limitations History of Present Illness HPI narrative: 27-year-old female with no significant medical problems here today for a rash on both palms and wrist/forearms. Present for 1 week. Denies rash elsewhere on her body such as her legs/feet or her mouth. She has not had any recent illness or symptoms such as headache, fever, body aches, chills, sore throat, cough, or any other symptoms. She has 2 kids and at home that do not have a rash. States the rash seems to be spreading slowly up her forearm as well as onto the dorsum of her hands. States the rash is mildly itchy but only when she is using her hands to hold something or do a certain tasks. She does not have any significant itchiness of the rash at rest. She has not applied any medications or creams to the rash. She has no history of eczema or other skin problems. She has been to her for 5 years and has no history or concerns of STIs. She recently had STD screening including an RPR in March which was all negative. No recent travel. Related Data Home Medications Medication Instructions Recorded Confirmed cholecalciferol (vitamin D3) 25 25 mcg PO DAILY 02/13/21 03/22/23 mcg (1,000 unit) capsule Previous Rx's Medication Instructions Recorded prenat.vits,charla,dzq-ccuz-ytiub 1 tab PO DAILY #90 tabs 01/19/21 Double electric breast pump #1 ea 07/07/21 citalopram 20 mg tablet 20 mg PO DAILY #90 tabs 10/15/21 hydroxyzine HCl 25 mg tablet 25 mg PO BID PRN anxiety #20 tabs 10/22/21 clobetasol 0.05 % topical gel 1 applic topical BID #30 grams 05/29/23 Allergies Allergy/AdvReac Type Severity Reaction Status Date / Time No Known Drug Allergies Allergy Verified 05/29/23 13:35 Review of Systems <Janet Gomez PA-C - Last Filed: 05/29/23 17:54> Review of Systems ROS Unobtainable: All systems reviewed & are unremarkable except as noted in HPI and below Patient History <Janet Gomez PA-C - Last Filed: 05/29/23 17:54> Medical History (Updated 05/29/23 @ 15:50 by Janet Gomez PA-C) Anesthesia complication (07/06/21) Scoliosis Hidradenitis suppurativa Anemia during (~2014) anxiety (~2019) Family History Mother Hypertension Father No problems noted. Grandmother Diabetes mellitus Grandfather No problems noted. Grandmother Diabetes mellitus Grandfather No problems noted. Social History marital status: number of children: 2 household members: spouse and children lives independently: Yes caregiver/support person: No pets and animals: Yes (2 dogs, 1 hamster.) education level: high school occupational status: employed current occupational exposures/hazards: No seatbelt use: always do you feel safe at home: Yes Smoking Status: Never smoker second hand exposure: No alcohol intake: former substance use type: does not use during the past year weight has: remained stable well-balanced diet: daily or most days daily servings fruits/ve-4 caffeine: Yes ( a couple times/month) Type(s) of exercise: walking and normal ROM and activity frequency: 3-4 times per week Smoking Status: Never smoker Substance Use Type: does not use Exam <Janet Gomez PA-C - Last Filed: 05/29/23 17:54> Narrative Exam Narrative: GENERAL: Well-developed, well-nourished, appears stated age. In no acute distress HEAD: Atraumatic. Normocephalic. EYES: Pupils equal round and reactive. Extraocular motions intact. No scleral icterus. No injection or drainage. ENT: Nose without bleeding, purulent drainage. Airway patent. No lesions on the outer or inner mouth. NECK: Trachea midline. Non tender RESPIRATORY: Respiratory rate and effort normal EXTREMITIES: No edema or joint tenderness. NEURO: AOx3. SKIN: Erythematous papules noted all over the palms and inner surface of forearms up to the antecubital fossa. Concentrated mostly on palms and in her wrists. Few scattered on dorsum of hands and arms as well. No rash noted anywhere else on the body including the soles of feet. Initial Vital Signs Initial Vital Signs: Vital Signs Temperature 98.6 F 05/29/23 13:35 Pulse Rate 68 05/29/23 13:35 Respiratory Rate 18 05/29/23 13:35 Blood Pressure 145/102 H 05/29/23 13:35 Pulse Oximetry 98 05/29/23 13:35 Oxygen Delivery Method Room Air 05/29/23 13:35 <Asya Urena MD - Last Filed: 05/30/23 07:24> Initial Vital Signs Initial Vital Signs: Vital Signs Temperature 98.6 F 05/29/23 13:35 Pulse Rate 68 05/29/23 13:35 Respiratory Rate 18 05/29/23 13:35 Blood Pressure 145/102 H 05/29/23 13:35 Pulse Oximetry 98 05/29/23 13:35 Oxygen Delivery Method Room Air 05/29/23 13:35 Course <Janet Gomez PA-C - Last Filed: 05/29/23 17:54> Vital Signs Vital signs: Vital Signs - 8 hr 05/29/23 13:35 05/29/23 15:11 Temperature 98.6 F Pulse Rate 68 75 Respiratory Rate 18 18 Blood Pressure 145/102 H 115/79 Pulse Oximetry 98 98 Oxygen Delivery Method Room Air Room Air <Asya Urena MD - Last Filed: 05/30/23 07:24> Vital Signs Vital signs: Vital Signs - 8 hr 05/29/23 13:35 05/29/23 15:11 Temperature 98.6 F Pulse Rate 68 75 Respiratory Rate 18 18 Blood Pressure 145/102 H 115/79 Pulse Oximetry 98 98 Oxygen Delivery Method Room Air Room Air MDM - Skin/Abscess/Foreign Bdy <Janet Gomez PA-C - Last Filed: 05/29/23 17:54> MDM Narrative Medical decision making narrative: Differential diagnosis considered includes: Faez-rfwq-rclkt disease, dyshidrotic eczema, scabies, secondary syphilis Patient has a palmar rash that extends onto the inner portion of her wrists and forearms. The lesions are papular with no obvious blistering or pustules. They are nonblanching. They are slightly raised off the skin. They are only mildly itchy. There are some in between her fingers and on the dorsum of her hands and forearms but mostly concentrated on the palm and in her wrist area. She has no other symptoms or recent illness/symptoms. Has not had any recent viral symptoms, headaches, fevers, or anything else noteworthy in her history. Briefly considered secondary syphilis but patient just had full STD panel done in March 2023 along with her Pap smear and her RPR was negative. This is atypical for kdqo-iytm-[id number] especially because she has children at home that have not developed any symptoms, she also has no lesions on her mouth or feet, but it still remains a possibility. Atypical of dyshidrotic eczema and scabies because she really does not have much itching except for occasionally. Since the top two on the differential or shpc-fklc-iozci and dyshidrotic eczema, will prescribe her some topical corticosteroids to see if these help or if the rash just resolves on its own in the next week (if it is HFM). If she continues to have a rash for more than another week or if it is spreading to other areas of her body I recommend she follow up with her primary care physician to discuss. Patient understands and agrees with plan. Discharge Plan Departure Patient Disposition: Home Clinical Impression: Hand dermatitis Activity Restrictions/Additional Instructions: You were seen today for a rash on her hands. The diagnosis is unclear at this time but possibilities include khkc-qexc-uyhyd disease or a type of eczema called dyshidrotic eczema. Since she did not have any other symptoms along with the rash, blood work and other testing did not seem indicated at this time. We will do a trial of corticosteroid ointment for your hands and arms. If it is [id number] disease it will resolve on its own in another week or so. If it is not resolving with time or the ointment we recommend following up with your primary care physician for further workup on the rash. Prescriptions: New clobetasol 0.05 % gel 1 applic topical BID Qty: 30 0RF No Action prenat.vits,charla,ujz-zamo-fzjkx Tablet 1 tab PO DAILY Qty: 90 3RF cholecalciferol (vitamin D3) 25 mcg (1,000 unit) capsule 25 mcg PO DAILY (DME) Double electric breast pump See Rx Instructions .Route .MEDSUPPLY Qty: 1 0RF Rx Instructions: Use electric breast pump and supplies as directed for 99 months. JEFFERY 07/23/21 citalopram 20 mg tablet 20 mg PO DAILY Qty: 90 3RF hydroxyzine HCl 25 mg tablet 25 mg PO BID PRN (Reason: anxiety) Qty: 20 3RF Rx Instructions: 1/2 to 1 twice a day as needed for anxiety Stand Alone Forms: Patient Portal/API ED Sign-out <Asya Urena MD - Last Filed: 05/30/23 07:24> Cosign ED Attending Cosignature Attestation: I was immediately available in the department for consultation throughout this patient's visit. Asya Urena MD
== END 2023-05-29 15:55 | disposition home or self-care (01) ==
PROVIDERS: Emergency Provider Physician Assistant
DX: L30.9 Dermatitis, unspecified (principal)
CPT/HCPCS: 99281